=== PATIENT | female | born 1960 | race Caucasian/White ===

== ENCOUNTER → 2016-12-20 | Outpatient (CLI) | payer OTHER ==
[~2016-12-20] MED LIST: CEPHALEXIN500 MG PO; CLARITIN 10MG T10 MG PO; FERROUS SULFAT325 MG PO; IBUPROFEN600 MG PO; NORCO 5-325 TA1 EACH PO; RANITIDINE HCL150 MG PO; TRAZODONE HCL100 MG PO; ZOFRAN ODT4 MG PO
== END ==
LOC: KOH-I 14:56
DX: M54.6 Pain in thoracic spine (principal)
CPT/HCPCS: 72128

== ENCOUNTER 2017-01-02 10:27 | Emergency (ER) | payer OTHER ==
[2017-01-02 11:06] LABS: HEMOGLOBIN 11.2 gm/dl (12.3-15.3); RED BLOOD COUNT 3.83 M/UL (4.00-5.10); WHITE BLOOD COUNT 7.6 K/UL (4.5-11.0)
[2017-01-02 11:26] LABS: BUN/CREATININE RATIO 17 (0-10)
[2017-01-08] MEDS ORDERED: CEPHALEXIN500 MG PO (09:34)
[2017-01-08] MEDS ORDERED: FERROUS SULFAT325 MG PO (09:42)
[2017-01-08] MEDS ORDERED: IBUPROFEN600 MG PO (09:42)
[2017-01-08] MEDS ORDERED: CLARITIN 10MG T10 MG PO (09:43)
[2017-01-08] MEDS ORDERED: RANITIDINE HCL150 MG PO (09:44)
[2017-01-08] MEDS ORDERED: ZOFRAN ODT4 MG PO (09:44)
[2017-01-08] MEDS ORDERED: TRAZODONE HCL100 MG PO (09:47)
[2017-01-08] MEDS ORDERED: NORCO 5-325 TA1 EACH PO (14:54)
== END 2017-01-02 15:20 | disposition home or self-care (01) ==
LOC: ER1 10:27
PROVIDERS: Emergency Medicine
DX: N39.0 Urinary tract infection, site not specified (principal); R10.11 Right upper quadrant pain
CPT/HCPCS: 36415; 71020; 76705; 80053; 81001; 82150; 82550; 82553; 83690; 83874; 84484; 85025; 87086; 93005; 96374; 96375; 96376; 99284; J0696; J2270; J2405; J7030; J7050; Q9962

== ENCOUNTER → 2017-01-08 | Day surgery (SDC) | payer OTHER | END | disposition home or self-care (01) | LOC: OR 08:58 | PROVIDERS: Surgery | PROC: 0FT44ZZ Resection of Gallbladder, Percutaneous Endoscopic Approach (ICD-10-PCS; principal; 2017-01-08 11:30) | DX: R10.11 Right upper quadrant pain (principal); Z79.899 Other long term (current) drug therapy; Z87.442 Personal history of urinary calculi; Z98.51 Tubal ligation status; Z77.22 Contact with and (suspected) exposure to environmental tobacco smoke (acute) (chronic) | CPT/HCPCS: J0295; J1100; J1885; J2250; J2270; J2405; J2710; J3010; J7030; J7050; J7120 ==

== ENCOUNTER 2020-12-13 22:45 | Emergency (ER) | payer OTHER ==
[~2020-12-13 22:45] MED LIST changes: +BACTRIM DS TAB1 EACH PO; +KEFLEX CAP 500500 MG PO
[2020-12-14 00:09] LABS: HEMOGLOBIN 10.9 gm/dl (12.3-15.3); RED BLOOD COUNT 3.73 M/UL (4.00-5.10)
[2020-12-14 00:21] LABS: BUN/CREATININE RATIO 10 (0-10)
[2020-12-14] MEDS ORDERED: MAGIC MOUTH WASH (01:17)
== END 2020-12-14 01:45 | disposition home or self-care (01) ==
LOC: ER1 22:45
PROVIDERS: Family Medicine
DX: R51.9 Headache, unspecified (principal); F41.0 Panic disorder [episodic paroxysmal anxiety]; I10 Essential (primary) hypertension
CPT/HCPCS: 36415; 80053; 82550; 82553; 83874; 84484; 85025; 93005; 99284